=== PATIENT | male | born 1970 ===

== ENCOUNTER 2021-05-17 21:18 | Emergency (ER) | payer BC ==
[~2021-05-17] VITALS: Ht 180.3 cm; Wt 81.6 kg
== END 2021-05-17 22:17 | disposition home or self-care (01) ==
LOC: ER 21:18
DX: S01.511A Laceration without foreign body of lip, initial encounter (principal); W21.89XA Striking against or struck by other sports equipment, initial encounter; Y93.73 Activity, racquet and hand sports; Y92.89 Other specified places as the place of occurrence of the external cause; Y99.8 Other external cause status